=== PATIENT | male | born 1965 | race Caucasian/White ===

== ENCOUNTER → 2019-01-20 | Outpatient (CLI) | payer OTHER ==
--- NOTE | 2019-01-20 12:31 | PCVCIMAG ---
APPROVED REPORT Study performed: 01/20/2019 11:18:29 Exam: Stress Echocardiogram Indication: Hyperlipidemia, Hypertension Stress Nurse: Elvira Smith RN Status: routine Ht: 5 ft 11 in HR: 74 bpm BP: 104/80 mmHg Rhythm: NSR Medical History Medical History: Atrial Fibrillation Procedure The patient underwent an Exercise Stress Test using the Augusto Protocol. Blood pressure, heart rate, and EKG were monitored. An Echocardiogram was performed by armored service technician in four stages in quad fashion. At peak stress, four selected images were obtained and placed side by side with resting images for comparison. Stress Test Details Stress Test: Exercise stress testing was performed using a Augusto protocol. HR Resting HR: 74 bpmMax Heart Rate (APMHR): 168 bpm Max HR Achieved: 104 bpmTarget HR (85% APMHR): 142 bpm % of APMHR: 61 HR response to stress: Normal HR response to stress BP Resting BP: 104/80 mmHg Max BP: 164/70 mmHg Recovery BP: 164/70 mmHg BP response to stress: Normal blood pressure response to stress. ECG Resting ECG: Sinus Rhythm Stress ECG: Sinus Rhythm Recovery ECG: Sinus Rhythm Clinical Reason for Termination: Maximal effort Exercise duration: 11 min 00 sec Highest Stage Achieved: Stage 4: 4.2 mph at 16% grade. Exercise capacity: 13.40 METs Overall Exercise Capacity for Age: Normal Pre-Stress Echo The resting Echocardiogram showed normal left ventricular contractility with an estimated Ejection Fraction of about 55-60%. Normal wall motion in all segments on baseline images. Post-Stress Echo The stress Echocardiogram showed normal left ventricular contractility with an estimated Ejection Fraction of about 60-65%. Normal augmentation of wall motion in all segments on post stress images. Clinical No clinical or ECG evidence for ischemia. Conclusion Clinical Response: Non-ischemic Exercise Capacity: Average Stress ECG Response: Non-ischemic Stress Echo Images: Non-ischemic The left ventricle is normal in size and wall thickness in both the rest and stress images. Trace tricuspid regurgitation. Pulmonary artery pressure is 27mmHg. No other valvular abnormalities. Other Information Study Quality: Adequate <Conclusion> The left ventricle is normal in size and wall thickness in both the rest and stress images. Trace tricuspid regurgitation. Pulmonary artery pressure is 27mmHg. No other valvular abnormalities.
== END | disposition home or self-care (01) ==
LOC: PCVCIMAG 11:27
PROVIDERS: ATTEND Internal Medicine Cardiovascular Disease
DX: R53.83 Other fatigue (principal); I10 Essential (primary) hypertension; E78.5 Hyperlipidemia, unspecified; Z88.2 Allergy status to sulfonamides
CPT/HCPCS: 93325; 93351